=== PATIENT | female | born 1985 | race Caucasian/White ===

== ENCOUNTER 2017-05-07 00:06 | Inpatient (IN) | payer OTHER ==
[~2017-05-07] VITALS: Ht 157.5 cm; Wt 83.0 kg
== END 2017-05-10 13:25 | disposition home or self-care (01) | DRG 774 ==
LOC: FBC 00:06
PROVIDERS: ADMIT Obstetrics & Gynecology
PROC: 10E0XZZ Delivery of Products of Conception, External Approach (ICD-10-PCS; principal; 2017-05-08)
PROC: 00HU33Z Insertion of Infusion Device into Spinal Canal, Percutaneous Approach (ICD-10-PCS; 2017-05-08)
PROC: 3E0R3BZ Introduction of Anesthetic Agent into Spinal Canal, Percutaneous Approach (ICD-10-PCS; 2017-05-08)
PROC: 0DQP0ZZ Repair Rectum, Open Approach (ICD-10-PCS; 2017-05-08)
DX: O15.1 Eclampsia complicating labor (principal); O70.3 Fourth degree perineal laceration during delivery; Z3A.40 40 weeks gestation of pregnancy; Z37.0 Single live birth; O13.4 Gestational [pregnancy-induced] hypertension without significant proteinuria, complicating childbirth; O77.0 Labor and delivery complicated by meconium in amniotic fluid; O69.1XX0 Labor and delivery complicated by cord around neck, with compression, not applicable or unspecified
CPT/HCPCS: 01960; 36415; 80053; 82570; 82803; 83735; 84156; 84550; 85025; 85027; J1644; J2590; J3105; J3475; J7120

== ENCOUNTER 2019-11-12 10:25 | Inpatient (IN) | payer OTHER ==
[~2019-11-12] VITALS: Ht 157.5 cm; Wt 81.0 kg
--- NOTE | ~2019-11-12 | OR ---
[address] [address] Draft DATE OF OPERATION: 11/12/2019 SURGEON: Destin Rawls DO PREOPERATIVE DIAGNOSES: 1. Intrauterine at 38 weeks gestation. 2. Gestational hypertension. 3. History of fourth-degree perineal laceration. 4. macrosomia. POSTOPERATIVE DIAGNOSES: 1. Intrauterine at 38 weeks gestation. 2. Gestational hypertension. 3. History of fourth-degree perineal laceration. 4. macrosomia. PROCEDURE PERFORMED: Primary low-transverse delivery under general anesthetic. SURGEON: Destin Rawls DO. STATION JAILER: Ashley Aguilar MD. ANESTHESIA: General. ESTIMATED BLOOD LOSS: 700 mL. COMPLICATIONS: None. FINDINGS: Viable male , weighing 7 pounds 7 ounces with Apgars 6 and 8 at 1 and 5 minutes respectively. Normal tubes and ovaries. The uterus demonstrates multiple fibroids in posterior uterine wall, that appeared to be intramural with the largest approximately 3 cm in diameter. PATIENT NAME: BEATRICE ZUNIGA OPERATIVE REPORT DATE OF : 85 REPORT #: [id number] PHYSICIAN: DESTIN RAWLS DO PCP: GABE ANDERSEN MD REPORT IS CONFIDENTIAL AND NOT TO BE RELEASED WITHOUT AUTHORIZATION [address] [address] Draft INDICATIONS: Ms. Zuniga is a very pleasant 34-year-old G2, P1, white female, who was admitted to Labor and Delivery for gestational hypertension. was complicated by history of severe preeclampsia in her last with persistently elevated blood pressures at 38 weeks gestation. Prior was also complicated by history of maternal fourth-degree perineal laceration with a 7 pounds 5 ounces . The patient and strongly desired primary low-transverse delivery after discussing risks and benefits of repeat trial of labor. All questions were answered to the best of my ability and the patient's apparent satisfaction. TECHNIQUE: The patient was taken to the operating room, where a time-out was performed to confirm correct patient and correct procedure. Spinal anesthetic was performed, and the patient was prepped and draped in the supine position with a bump under the right hip. Ancef 2 g were given preoperatively and tranexamic acid 1 g IV was also given. Navarrete catheter was inserted and ICPs were on and running. Once the patient was prepped and draped, it was determined that the spinal anesthetic was not providing adequate pain relief and decision was made to proceed with the procedure under general anesthetic. Once general anesthetic was obtained, a Pfannenstiel skin incision was made 2 cm above the pubic symphysis and carried down to the fascia. Fascia was nicked in the midline and fascial incision was extended bilaterally using curved Gonzalez scissors. Fascia was grasped with Nabeel's, elevated, and the underlying rectus muscles dissected off sharply and bluntly. The rectus muscles were divided bluntly in the midline and the peritoneum was entered bluntly. Peritoneal incision was extended bilaterally using sharp and blunt dissection. An Feliberto self retractor was placed and the lower uterine segment identified. Hysterotomy was performed using a surgical scalpel and clear amniotic fluid was noted. Hysterotomy was extended bilaterally using blunt dissection. Surgeon's hand was placed in the uterine cavity and the head elevated into the maternal abdomen and delivered with the assistance of fundal pressure. No nuchal cord was noted and the baby delivered easily. The was vigorous and cried at delivery and cord was doubly clamped and cut and the was handed to the waiting pediatric team for further care. Cord blood was obtained for routine analysis. The placenta was manually expressed intact with a centrally inserted 3-vessel cord. Uterus was cleared of any remaining products of conception and clot. Hysterotomy was repaired using 0 Vicryl in a running locked suture. A second imbricating suture of 0 Vicryl was applied in a vertical manner. Small amount of oozing was noted in the midline. This was made hemostatic with a ybchvu-hn-bnfei of 0 Vicryl. The pelvis was irrigated and small spots of oozing were made hemostatic with Bovie electrocautery judiciously used. Normal fallopian tubes bilaterally as well as ovaries; however, the uterus demonstrates multiple fibroids in the posterior wall of the uterus. These appear to be intramural or transmural with the largest being approximately 3 to 4 cm in diameter. The uterus was returned to the abdomen and the lower uterine segment again identified, and found to be PATIENT NAME: BEATRICE ZUNIGA OPERATIVE REPORT DATE OF : 85 REPORT #: [id number] PHYSICIAN: DESTIN RAWLS DO PCP: GABE ANDERSEN MD REPORT IS CONFIDENTIAL AND NOT TO BE RELEASED WITHOUT AUTHORIZATION [facility] [address], [place] [address] Draft hemostatic. ACell was applied to the lower uterine segment after the Feliberto retractor was removed. Peritoneum was then reapproximated using 2-0 Vicryl in a running nonlocked manner. The rectus was carefully examined and made hemostatic with the judicious use of Bovie electrocautery and 2-0 chromic. Rectus muscles were then plicated midline using 0 Vicryl and loose interrupted sutures. ACell powder and Carisa were applied to the rectus sheath once hemostasis was appreciated. Fascia was then reapproximated using 0 Vicryl in a running nonlocked manner. Subcu was made hemostatic with Bovie electrocautery. It was irrigated and again found to be hemostatic. Carisa was applied to the subcutaneous tissue and subcutaneous was reapproximated using 2-0 Vicryl in a running nonlocked manner. Skin was then reapproximated using surgical jose with excellent cosmesis and hemostasis. The uterus Crede'd for scant amount of blood and the patient was taken to PACU in good and stable condition. Sponge, needle, and instrument counts correct x2 at the end the procedure. Dr. Aguilar was present and participated in all portions of procedure. Destin Rawls DO JDHIRAJ/ALFRED /[id number] Copies: ~ PATIENT NAME: BEATRICE ZUNIGA OPERATIVE REPORT DATE OF : 85 REPORT #: [id number] PHYSICIAN: DESTIN RAWLS DO PCP: GABE ANDERSEN MD REPORT IS CONFIDENTIAL AND NOT TO BE RELEASED WITHOUT AUTHORIZATION
--- NOTE | 2019-11-12 17:32 | NUR ---
11/12/19 173 Mary Ann Woodward 1727- PT TO PACU IN SUPINE POSITION. EYES OPEN. RESPONDS TO QUESTIONS APPROPRIATELY, WHILE STILL DROWSY. BREATHING EASY AND UNLABORED. SPO2 >95% ON NRB MASK. FUNDUS AT THE UMBILICUS. FUNDAL MASSAGE PERFORMED 1730- PT EYES OPEN. REPORTS FEELING COMFORTABLE. DENIES NAUSEA OR DIZZINESS. BREATHING EASY AND UNLABORED SP02 >95% ON RA. FUNDUS FIRM -1 BELOW UMBILICUS. MINIMAL BLEEDING OBSERVED ON PERIPAD. DRESSING CDI
--- NOTE | 2019-11-13 07:09 | PR ---
[facility] [address] [place], [place] [address] Signed PP Progress Notes Datetime Report Generated by CPN: 11/13/2019 07:08 SUBJECTIVE: [id number] Pain: Within normal limits Nausea/Vomiting: Denies Flatus: Yes Vital Signs: [id number] Vital Signs: Reviewed; Within Normal Limits EXAM: [id number] Cardiovascular: Normal Respiratory: Normal Abdomen/Uterus: Normal Lochia: Normal Vulva/Perineum: Not Done Breasts: Not Done CVA Tenderness: Normal Extremities: Normal Incision: Normal Progress: Not Applicable Exam Comments: Fundus firm U-2 nontender Incision well healing IMPRESSION/PLAN/PROCEDURES: [id number] Impression: Normal progression Plan: Continue present management Progress Notes: Pt seen and examined. Doing well. Has not ambulated and shanks cath in place. Tolerating full diet. Pain and lochia minimal. Bottle feeding. Plan d/c shanks and IV today. Anticipate d/c home tomorrow. Signing Physician: Dsetin Rawls DO Copies: ~ *Electronically Signed* 11/13/19 0708 DESTIN RAWLS DO PATIENT NAME: EFRAINBEATRICE PROGRESS NOTE DATE OF : 85 PHYSICIAN: DESTIN RAWLS DO [facility] #: [id number] REPORT IS CONFIDENTIAL AND NOT TO BE RELEASED WITHOUT AUTHORIZATION
--- NOTE | 2019-11-14 09:30 | PR ---
[facility] [address] [facility] [place], [place] [address] Signed PP Progress Notes Datetime Report Generated by CPNikky: 11/14/2019 09:30 SUBJECTIVE: [id number] Pain: Within normal limits Pain Comments: some gas pain Nausea/Vomiting: Denies Flatus: Yes Vital Signs: [id number] Vital Signs: Reviewed; Within Normal Limits EXAM: [id number] Cardiovascular: Normal Respiratory: Not Done Abdomen/Uterus: Abnormal Lochia: Normal Vulva/Perineum: Not Done Breasts: Not Done CVA Tenderness: Not Done Extremities: Normal Incision: Normal Progress: Not Applicable Exam Comments: Abdomen with active BS. Fundus firm, NT @ U-1. IMPRESSION/PLAN/PROCEDURES: [id number] Impression: Normal progression Plan: Remove jose; Discharge Procedures: None Progress Notes: Doing well. She is ready for D/C. Signing Physician: Ashley Aguilar MD Copies: ~ *Electronically Signed* 11/14/19929 ASHLEY AGUILAR MD PATIENT NAME: BEATRICE ZUNIGA PROGRESS NOTE DATE OF : 85 PHYSICIAN: ASHLEY AGUILAR MD RPT #: [id number] REPORT IS CONFIDENTIAL AND NOT TO BE RELEASED WITHOUT AUTHORIZATION
== END 2019-11-14 12:45 | disposition home or self-care (01) | DRG 788 ==
LOC: FBC 10:25 → MS 11-13 10:00 → FBC 11-13 11:37
PROVIDERS: ADMIT Obstetrics & Gynecology
PROC: 10D00Z1 Extraction of Products of Conception, Low, Open Approach (ICD-10-PCS; principal; 2019-11-12 16:00)
DX: O14.04 Mild to moderate pre-eclampsia, complicating childbirth (principal); Z3A.38 38 weeks gestation of pregnancy; Z37.0 Single live birth; O36.63X0 Maternal care for excessive fetal growth, third trimester, not applicable or unspecified; Z88.5 Allergy status to narcotic agent
CPT/HCPCS: 01961; 36415; 82565; 82570; 84156; 84450; 84520; 84550; 85025; A9270; J0330; J0690; J1650; J2001; J2274; J2405; J2550; J2590; J2704; J3010; J7121

== ENCOUNTER 2022-12-19 05:50 | Day surgery (SDC) | payer OTHER ==
[2022-12-12 16:25] VITALS: BP 145/98
[~2022-12-19] VITALS: Ht 157.5 cm; Wt 69.1 kg
[2022-12-19 05:59] VITALS: BP 154/86
--- NOTE | 2022-12-19 08:48 | NUR ---
12/19/22 0848 Crystal Sams 0834- PT ARRIVED TO PACU AWAKE AND ANSWERING QUESTIONS, ALL MONITORS APPLIED. LR INFUSING. NO BLEEDING NOTED TO SURGICAL SITE. PT CAN FEEL AND MOVE BOTH FEET BUT FEELS TINGLING. 0844- PT DRINKING ICE WATER, TOLERATING WELL. NO CHANGES IN PT STATUS.
[2022-12-19 09:05] VITALS: BP 147/81
--- NOTE | 2022-12-19 09:35 | NUR ---
LE 0905 PATIENT BACK TO ROOM 5. VITAL SIGNS COMPLETE. REPORT RECIEVED FROM CADE STEWARD. PATIENT AWAKE AND ORIENTED. DENIES PAIN AND STATES SHE STILL HAS NUMBNESS AND TINGLING IN LOWER EXTERMITIES. PATIENT BREATHING EQUAL AND UNLABORED. OXYGEN SATURATIONS ABOVE 95% ON ROOM AIR. PATIENT GIVEN VICKEY PAD AND MESH UNDERWEAR FOR DRAINAGE. PATIENT DENIES BEING NAUSEATED. PATIENT GIVEN WATER AND JELLO. AT BEDSIDE. LE 09 PATIENT ATTEMPTED TO STAND. NUMBNESS AND TINGLING IN LOWER EXTERMITIES. PATIENT BACK TO BED. CALL LIGHT WITHIN REACH NO FUTHER NEEDS. NO QUESTIONS AT THIS TIME.
[2022-12-19 10:05] VITALS: BP 151/89
--- NOTE | 2022-12-19 10:33 | NUR ---
LE 1000 PATIENT UP TO THE RESTROOM. SADDLE BLOCK RESOLVED. PATIENT VOIDED 200 MLS OF CLEAR AND YELLOW URINE. LE 1015 PATIENT HAS MET DISCHARGE INSTRUCTIONS. PATIENT DRESSED SELF WELL. PATIENT IV D/C'D WNL. PATIENT GIVEN DISCHARGE INSTURCTIONS AND UNDERSTOOD. NO QUESTIONS AT THIS TIME. PATIENT WHEELED OUT OF FACILITY TO PRIVATE CAR WITH . NO FUTHER NEEDS.
--- NOTE | 2022-12-19 13:20 | NUR ---
PT IN BED. DENIED ANY NEEDS. INDICATED SHE HAD RIDE ARRANGED AND DID NOT NEED SUPPORT PRESENT. CONSENTED TO PRAYER. PRAYED FOR SUCCESSFUL PROCEDURE AND LLOYD AND COMPLETE RECOVERY.
--- NOTE | 2022-12-20 08:33 | OR ---
[facility] [address] [facility] [place], [place] [address] Signed DATE OF OPERATION: 12/19/2022 SURGEON: Destin Rawls DO PREOPERATIVE DIAGNOSES: 1. Dyspareunia. 2. Acquired deformity of the vulva. 3. History of fourth-degree perineal laceration. POSTOPERATIVE DIAGNOSES: 1. Dyspareunia. 2. Acquired deformity of the vulva. 3. History of fourth-degree perineal laceration. PROCEDURE PERFORMED: Perineorrhaphy. ANESTHESIA: Saddle block and MAC. ESTIMATED BLOOD LOSS: 5 mL. COMPLICATIONS: None. FINDINGS: Normal clitoris, urethral meatus, bilateral Carleton's and Bartholin glands. Anus with dove tail sign and small perineal body. The verge of the introitus onto the perineal body. There is a small bridge of skin with chronic irritation and slight ulceration noted consistent with prior examinations. Remainder of vagina was normal and cervix appears normal. Bimanual exam was not performed. TECHNIQUE: The patient was taken to the operating room where a time-out was performed to confirm correct patient and correct procedure. Saddle block anesthetic with MAC was adequately established and the patient was prepped and draped in the dorsal lithotomy position with her feet in Yellofin stirrups. ICPs were on and running and no preoperative antibiotics or heparin was indicated. The bladder was drained. Allis clamps were placed at the introitus and inverted triangle of skin over the perineal body was incised using 15 Electronically Signed By: DESTIN RAWLS DO (JD) 12/20/22 0833 PATIENT NAME: BEATRICE ZUNIGA OPERATIVE REPORT DATE OF : 85 REPORT #: [id number] PHYSICIAN: DESTIN RAWLS DO (JD) PCP: GABE ANDERSEN MD REPORT IS CONFIDENTIAL AND NOT TO BE RELEASED WITHOUT AUTHORIZATION [facility] [address] [place], [place] [address] Signed blade. This excised all inflammatory and irritated tissue. Perineorrhaphy was then repaired in three layers. The 1st two being 0 Vicryl and the final layer with 3-0 chromic. This was performed in the standard fashion with plication in the midline with denominational of normal anatomy. Very careful attention was performed. There was execellent alighment of skin edges and denominational of normal anatomy. The patient was then taken to the PACU in good and stable condition. Sponge, needle and instrument count was correct x2 at the end of the procedure. DO PAM Valenzuela/MODL /[id number] Copies: ~ Electronically Signed By: DESTIN RAWLS DO (JD) 12/20/22 0833 PATIENT NAME: BEATRICE ZUNIGA OPERATIVE REPORT DATE OF : 85 REPORT #: [id number] PHYSICIAN: DESTIN RAWLS (ARMANDO) DO PCP: GABE ANDERSEN MD REPORT IS CONFIDENTIAL AND NOT TO BE RELEASED WITHOUT AUTHORIZATION
== END 2022-12-19 10:15 | disposition home or self-care (01) ==
LOC: DS 05:50 → OPS 05:50 → EDSTATUS 07:30 → DS 07:30 → OPS 10:15 → DS 11:00 → OPS 13:00
PROVIDERS: ATTEND Obstetrics & Gynecology
PROC: 0HQ9XZZ Repair Perineum Skin, External Approach (ICD-10-PCS; principal; 2022-12-19 13:00)
DX: N94.10 Unspecified dyspareunia (principal); N90.89 Other specified noninflammatory disorders of vulva and perineum; Z88.5 Allergy status to narcotic agent
CPT/HCPCS: J1100; J2001; J2250; J2405; J2704; J3010; J7121

== ENCOUNTER 2023-01-09 16:20 | Day surgery (SDC) | payer OTHER | END 2023-01-09 21:00 | disposition home or self-care (01) | LOC: DS 16:20 → CCU 16:22 | PROC: 0WQNXZZ Repair Female Perineum, External Approach (ICD-10-PCS; principal; 2023-01-09) | DX: T81.31XA Disruption of external operation (surgical) wound, not elsewhere classified, initial encounter (principal); Z88.5 Allergy status to narcotic agent ==